=== PATIENT | female | born 1970 | race Caucasian/White ===

== ENCOUNTER → 2016-12-09 | Outpatient (REF) | payer BC | LOC: M LAB REF 14:19 | PROVIDERS: ATTEND Podiatrist Foot & Ankle Surgery | DX: Q66.89 Other specified congenital deformities of feet (principal) ==

== ENCOUNTER 2017-02-18 19:37 | Emergency (ER) | payer BC ==
[~2017-02-18] VITALS: Ht 170.2 cm; Wt 72.7 kg
[2017-02-18] MEDS ORDERED: ONDANSETRON 4MG/2ML VIAL (J2405) IV ONE (20:30)
[2017-02-18] MEDS ORDERED: NS 1,000 ML IV ONE (20:30)
[2017-02-18] MEDS ORDERED: KETOROLAC 30 MG/ML VIAL (J1885) IV ONE (20:30)
[2017-02-18] MEDS: MORPHINE 4 MG/ML 1ML SYRINGE IV PRN ×2 (20:40→21:33)
[2017-02-18 20:44] LABS: CONTROL LINE UCG INT CTR LINE PRESENT
[2017-02-18 20:56] LABS: BASO % 0.6 % (0.0-1.0); EOS # 0.1 K/mm3 (0.0-0.50); EOS % 1.3 % (0.0-3.0); LARGE UNSTAINED CELL # 0.2 K/mm3 (0.0-0.4); LARGE UNSTAINED CELL % 2.3 % (0.0-4.0); LYMPH % 28.2 % (24.0-44.0); MEAN CORPUSCULAR HEMOGLOBIN 30.3 pg (27.0-33.0); MEAN CORPUSCULAR HGB CONC 34.3 g/dl (32.0-36.5); MEAN CORPUSCULAR VOLUME 88.3 fl (80.0-96.0); MONO # 0.4 K/mm3 (0.0-0.8); MONO % 5.7 % (0.0-5.0); NEUTROPHILS # 4.5 K/mm3 (1.8-7.7); NEUTROPHILS % 61.7 % (36.0-66.0); PLATELET COUNT, AUTOMATED 338 k/mm3 (150-450); RED CELL DISTRIBUTION WIDTH 12.1 % (11.5-14.5); WHITE BLOOD COUNT 7.2 K/mm3 (4.0-10.0)
[2017-02-18 21:31] LABS: ALBUMIN 4.2 GM/DL (3.2-5.2); ALBUMIN/GLOBULIN RATIO 1.31 (1.00-1.93); ALKALINE PHOSPHATASE 58 U/L (45-117); ALT/SGPT 24 U/L (12-78); ANION GAP 10 MEQ/L (8-16); AST/SGOT 15 U/L (15-37); BILIRUBIN,DIRECT < 0.1 MG/DL (0.0-0.2); BILIRUBIN,TOTAL 0.3 MG/DL (0.2-1.0); BLOOD UREA NITROGEN 13 MG/DL (7-18); CALCIUM LEVEL 9.1 MG/DL (8.5-10.1); CARBON DIOXIDE LEVEL 26 MEQ/L (21-32); CHLORIDE LEVEL 104 MEQ/L (98-107); CREATININE FOR GFR 0.81 MG/DL (0.55-1.02); GLOMERULAR FILTRATION RATE > 60.0 (>58); GLUCOSE, FASTING 93 MG/DL (70-105); POTASSIUM SERUM 3.7 MEQ/L (3.5-5.1); SODIUM LEVEL 140 MEQ/L (136-145); TOTAL PROTEIN 7.4 GM/DL (6.4-8.2)
[2017-02-18] MEDS ORDERED: HYDROmorphone HCL 1 MG/ML SYRINGE (J1170) IV STA (22:35)
--- NOTE | 2017-02-18 23:00 | REPUSA ---
CT of the abdomen and pelvis without contrast Clinical statement: Pain. Hematuria. Technique: Multiple axial CT images were obtained from the base of the lungs to the floor of the pelv is utilizing 5 mm axial slices without administration of contrast. Coronal and sagittal reconstructio ns were also obtained. No comparison is available. Findings: Chest: The visualized lung bases are clear. Abdomen: The kidneys are normal in size bilaterally. There is no evidence of hydronephrosis or nephro lithiasis. There is a small gallstone within the gallbladder. No pericholecystic inflammatory changes are seen. The liver, spleen, pancreas, and adrenal glands are unremarkable. The aorta demonstrates n ormal caliber and contour. There is no abdominal lymphadenopathy or ascites. Pelvis: The bowel is unremarkable, with no obstructive or inflammatory changes. The appendix is igncaio l. The urinary bladder is within normal limits. There is no pelvic lymphadenopathy or ascites. The ot her pelvic structures appear unremarkable. Bones: There are no suspicious osseous abnormalities seen. There is moderate degenerative disc diseas e at L5/S1. Impression: 1. No evidence of hydronephrosis or nephrolithiasis. 2. Cholelithiasis, without evidence of acute cholecystitis. 3. No obstructive or inflammatory bowel changes. 4. Moderate degenerative disc disease at L5/S1.
--- NOTE | 2017-02-19 01:10 | REPUSA ---
CLINICAL HISTORY: Pelvic pain. TECHNIQUE: Realtime sonographic images were obtained in multiple projections via TV approach. COMMENTS: The uterus is anteverted, heterogeneous measuring 8.1x4.9x6.1 cm. The endometrial echo pattern is wi thin normal limits measuring 12.3 mm. There is moderate amount of free fluid within the pelvic cul-de-sac. The right ovary measures 2.1x1.5x2.4 cm and the left ovary measures 2.9x2.5x2.4 cm. Involuting follic le/ruptured cyst of the left ovary measuring 1.3 cm. Both ovaries are free of solid or cystic mass. There is no evidence for abnormal vascularity. IMPRESSION: Involuting follicle/ruptured cyst of the left ovary. Adjacent free fluid. No evidence of ovarian torsion. Thank you for your kind referral of this patient.
[2017-02-19] MEDS ORDERED: OXYCODONE/APAP 5MG/325MG(BULK FOR ED) 1 TABLET PO ONE (01:30)
[2017-02-19] MEDS ORDERED: PERCOCET 5MG/325MG TAB PO ONE (01:30)
[2017-02-19 01:40] VITALS: BP 119/61
== END 2017-02-19 01:42 | disposition home or self-care (01) ==
LOC: M ED 19:37
DX: N83.02 Follicular cyst of left ovary (principal)
CPT/HCPCS: 74176; 76830; 76856; 80048; 80076; 81001; 83690; 84703; 85025; 87086; 87210; 87491; 87591; 93976; 96374; 96375; 99283; J1170; J1885; J2405

== ENCOUNTER → 2017-08-10 | Outpatient (REF) | payer BC ==
[2017-08-10 19:54] LABS: INFLUENZA A AMPLIFICATION NEGATIVE (NEGATIVE); INFLUENZA B AMPLIFICATION POSITIVE (NEGATIVE)
== END ==
LOC: M LAB REF 18:17
DX: J11.1 Influenza due to unidentified influenza virus with other respiratory manifestations (principal)
CPT/HCPCS: 87502

== ENCOUNTER → 2018-12-14 | Outpatient (REF) | LOC: M LAB 13:40 | PROVIDERS: ATTEND Nurse Practitioner Adult Health | DX: Z02.1 Encounter for pre-employment examination (principal) ==

== ENCOUNTER 2019-11-26 21:28 | Emergency (ER) | payer BC, OTHER ==
[~2019-11-26] VITALS: Ht 170.2 cm; Wt 72.2 kg
[2019-11-26] MEDS ORDERED: MORPHINE 10 MG/ML 1ML VIAL (J2270) IM ONE (21:45)
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
[2019-11-26] MEDS ORDERED: ROBA750T4 PO (23:04)
[2019-11-26] MEDS ORDERED: PERC5TAB12 PO (23:04)
[2019-11-26] MEDS ORDERED: methocarbamoL 750 MG TAB PO ONE (23:15)
[2019-11-26] MEDS ORDERED: PERCOCET 5MG/325MG TAB PO ONE (23:15)
[2019-11-27 00:18] VITALS: BP 117/56
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
== END 2019-11-27 00:15 | disposition home or self-care (01) ==
LOC: M ED 21:28 → EDBD 21:28 → M ED 11-27 00:15
DX: S39.012A Strain of muscle, fascia and tendon of lower back, initial encounter (principal); S80.01XA Contusion of right knee, initial encounter; V43.52XA Car driver injured in collision with other type car in traffic accident, initial encounter; Y92.9 Unspecified place or not applicable; Y93.9 Activity, unspecified; Y99.9 Unspecified external cause status; M48.061 Spinal stenosis, lumbar region without neurogenic claudication; M51.27 Other intervertebral disc displacement, lumbosacral region
CPT/HCPCS: 72131; 73564; 73590; 96372; 99284; J2270

== ENCOUNTER → 2020-07-27 | Outpatient (CLI) | payer OTHER ==
[~2020-07-27] MED LIST: CELE1CAP9; PERC5TAB12 PO; ROBA750T4 PO
== END ==
LOC: M LABSMTC 09:34
PROVIDERS: ATTEND Anesthesiology
DX: Z01.812 Encounter for preprocedural laboratory examination (principal); Z20.822 Contact with and (suspected) exposure to COVID-19

== ENCOUNTER 2020-08-01 07:08 | Day surgery (SDC) | payer OTHER ==
[~2020-08-01] VITALS: Ht 170.2 cm; Wt 74.4 kg
[~2020-08-01 07:08] MED LIST changes: +BUPIVACAINE HCL 0.5% 10ML VIAL As Ordered ONE; +LIDOCAINE 1% MDV 20ML VIAL As Ordered ONE; +LR 1,000 ML IV ONE; +ceFAZolin SOD 2 GM in IV 1 EA IV ONE; +dexameTHASONE 4 MG/ML 1ML VIAL (J1100 PER 1MG) As Ordered ONE
[2020-08-01] MEDS ORDERED: LIDOCAINE 2% 100MG/5ML SDV (FOR ANES.) As Ordered ONE (07:12)
[2020-08-01] MEDS ORDERED: ONDANSETRON 4MG/2ML VIAL As Ordered ONE (07:12)
[2020-08-01] MEDS ORDERED: MIDAZOLAM INJ 2MG/2ML VIAL (J2250 PER 1MG) As Ordered ONE (07:13)
[2020-08-01] MEDS ORDERED: fentaNYL 100 MCG/2 ML INJECTION (J3010) As Ordered ONE (07:13)
[2020-08-01] MEDS ORDERED: propofoL 500 MG/50 ML VIAL As Ordered ONE (07:13)
[2020-08-01] MEDS ORDERED: HYDR-3713 PO (09:11)
--- NOTE | 2020-08-01 09:40 | RO ---
OPERATIVE NOTE DATE OF OPERATION: 08/01/2020 PREOPERATIVE DIAGNOSIS: Left hallux rigidus. POSTOPERATIVE DIAGNOSIS: Left hallux rigidus. PROCEDURE: Left foot 1st metatarsophalangeal joint cheilectomy. SURGEON: Aníbal Mercer DPM [employer] OPERATOR: None. ANESTHESIA: Monitored anesthesia care, preop injection of 15 mL of 1:1 mixture of 1% Lidocaine plain and 0.5% Marcaine plain. ESTIMATED BLOOD LOSS: Minimal. MATERIALS: 3-0 and 4-0 Vicryl, 4-0 nylon. INJECTABLES: None. COMPLICATIONS: None. CONDITION: Stable. INDICATIONS: Mino Castro is a 50-year-old female who presents to [facility] with painful left 1st metatarsophalangeal joint. She presents today for surgical correction. The patient's site and side were identified and marked preoperatively. Consent was reviewed and obtained. Risks, benefits and alternatives to the procedure were explained to the procedure in detail, all questions were answered. DESCRIPTION OF PROCEDURE: The patient was brought to the operating room and placed on the operating table in supine position. Monitored anesthesia care was supplied by the anesthesia team, preoperative injection of 15 mL of 1:1 mixture of 1% Lidocaine plain and 0.5% Marcaine plain was injected into the left foot. Left foot was prepped and draped in usual sterile fashion. Tourniquet was applied to the left ankle and inflated to 250 mmHg. Dorsal incision was made over the left 1st metatarsophalangeal joint and carried through with #15 blade. Dissection was carried down until the 1st metatarsophalangeal joint capsule was identified. Linear capsulotomy was performed exposing the metatarsal head. There was a dorsal prominence on the metatarsal head and base of the proximal phalanx. This was removed with sagittal saw and smoothed with rasp. Cartilage was inspected, there was noted to be a cartilage defect from approximately the dorsal half of the metatarsal head. Drill holes were made in the cartilage defect with 4.5 K-wire. Site was irrigated with normal saline. Capsular repair was performed with 3-0 Vicryl, subcutaneous closure with 4-0 Vicryl and skin closure with 4-0 nylon. Sterile dressing was applied. Tourniquet was deflated. The patient was brought to PACU with vital signs stable and neurovascular status intact. She will be weightbearing as tolerated and will follow up in office in two days.
[2020-08-01] MEDS ORDERED: fentaNYL 100 MCG/2 ML INJECTION (J3010) IV PRN (10:00)
[2020-08-01] MEDS ORDERED: ONDANSETRON 4MG/2ML VIAL IV PRN (10:00)
[2020-08-01] MEDS ORDERED: oxyCODONE 5MG TAB PO PRN (10:00)
[2020-08-01] MEDS ORDERED: HYDROMORPHONE HCL 0.5 MG/ 0.5 ML SYRINGE (J1170 PER 1) IV PRN (10:00)
[2020-08-01] MEDS ORDERED: LR 1,000 ML IV SCH (10:00)
[2020-08-01 10:35] VITALS: BP 119/77
== END 2020-08-01 11:51 | disposition home or self-care (01) ==
LOC: M SDC 07:08
PROVIDERS: ATTEND Podiatrist Foot & Ankle Surgery
DX: M20.22 Hallux rigidus, left foot (principal); D64.9 Anemia, unspecified; J45.909 Unspecified asthma, uncomplicated
CPT/HCPCS: 28289; 81025; 88300; J0690; J2250; J2405; J3010

== ENCOUNTER → 2021-02-08 | Outpatient (REF) | payer OTHER ==
[~2021-02-08] MED LIST changes: -BUPIVACAINE HCL 0.5% 10ML VIAL As Ordered ONE; +HYDR-3713 PO; -LIDOCAINE 1% MDV 20ML VIAL As Ordered ONE; -LR 1,000 ML IV ONE; -ceFAZolin SOD 2 GM in IV 1 EA IV ONE; -dexameTHASONE 4 MG/ML 1ML VIAL (J1100 PER 1MG) As Ordered ONE
[2021-02-11 12:05] LABS: PERCENT SATURATION 10.3 % (13.2-45.0)
== END ==
LOC: M LAB REF 11:14
PROVIDERS: ATTEND Internal Medicine
DX: D64.9 Anemia, unspecified (principal)

== ENCOUNTER → 2021-03-21 | Outpatient (REF) | payer OTHER ==
[2021-03-21 19:06] LABS: INR 0.88; PROTHROMBIN TIME 12.3 SECONDS (12.7-14.5)
[2021-03-21 19:07] LABS: PARTIAL THROMBOPLASTIN TIME 32.4 SECONDS (25.9-37.0)
== END ==
LOC: M LAB REF 16:30
PROVIDERS: ATTEND Internal Medicine
DX: Z01.812 Encounter for preprocedural laboratory examination (principal)

== ENCOUNTER → 2022-01-03 | Outpatient (REF) | payer OTHER ==
[2022-01-03 17:13] LABS: INR 0.87; PROTHROMBIN TIME 12.2 SECONDS (12.7-14.5)
[2022-01-03 17:14] LABS: PARTIAL THROMBOPLASTIN TIME 31.8 SECONDS (25.9-37.0)
== END ==
LOC: M LAB REF 16:18
PROVIDERS: ATTEND Internal Medicine
DX: Z01.818 Encounter for other preprocedural examination (principal)

== ENCOUNTER → 2024-04-08 | Outpatient (REF) | payer MEDICARE, OTHER ==
[~2024-04-08] MED LIST changes: +CELE0.09; -CELE1CAP9
[2024-04-08 13:12] LABS: PERCENT SATURATION 16.3 % (13.2-45.0)
[2024-04-08 13:14] LABS: FERRITIN 32.2 NG/ML (7.3-270.7)
== END ==
LOC: M LAB REF 12:04
PROVIDERS: ATTEND Internal Medicine
DX: D50.9 Iron deficiency anemia, unspecified (principal)

== ENCOUNTER → 2025-04-13 | Outpatient (REF) | payer MEDICARE, OTHER ==
[2025-04-13 13:30] LABS: LUTEINIZING HORMONE 42.8 mIU/ML
[2025-04-13 13:31] LABS: ESTRADIOL < 19.0 PG/ML; PROGESTERONE < 0.21 NG/ML
[2025-04-13 13:32] LABS: CORTISOL AM 24.3 UG/DL (4.3-22.4)
== END ==
LOC: M LAB REF 12:36
PROVIDERS: ATTEND Internal Medicine
DX: E66.3 Overweight (principal); G43.909 Migraine, unspecified, not intractable, without status migrainosus

== ENCOUNTER → 2025-04-23 | Outpatient (REF) | payer MEDICARE, OTHER | LOC: M LAB REF 10:31 | PROVIDERS: ATTEND Internal Medicine | DX: R94.7 Abnormal results of other endocrine function studies (principal) ==

== ENCOUNTER → 2025-05-25 | Outpatient (REF) | payer MEDICARE, OTHER | LOC: M LAB REF 12:16 | PROVIDERS: ATTEND Internal Medicine | DX: R94.7 Abnormal results of other endocrine function studies (principal) ==